=== PATIENT | female | born 1935 | race Caucasian/White ===

== ENCOUNTER 2018-04-14 20:15 | Inpatient (IN) | payer MEDICARE, OTHER ==
[2018-04-14] MEDS ORDERED: BISACODYL 10 MG SUPP PR (22:30)
[2018-04-14] MEDS ORDERED: MAGNESIUM HYDROXIDE 30ML CUP PO (22:30)
[2018-04-14] MEDS ORDERED: ALBUTEROL/IPRATROPIUM (NEB) 3 ML AMP HHN (22:30)
[2018-04-14] MEDS: DOCUSATE SODIUM 100 MG CAP PO (22:43)
[2018-04-14] MEDS: MONTELUKAST 10 MG TAB PO (22:44)
[2018-04-14] MEDS: SENNA TAB PO (22:44)
[2018-04-14] MEDS: QUETIAPINE 25 MG TAB PO (22:44)
[2018-04-14] MEDS: ATORVASTATIN 10 MG TAB PO (22:44)
[2018-04-14] MEDS ORDERED: PENDING SANTYL ORDER FOR WOUND CARE XX (23:00)
[2018-04-14] MEDS ORDERED: POLYETHYLENE GLYCOL 17 GM PACKET PO (23:00)
[2018-04-14] MEDS ORDERED: GLUCOSE GEL 15 GRAM TUBE PO ×2 (23:00)
[2018-04-14] MEDS ORDERED: GLUCOSE GEL 15 GRAM TUBE BUCCAL (23:00)
[2018-04-14] MEDS ORDERED: traMADol 50 MG TAB PO (23:00)
[2018-04-14] MEDS ORDERED: GLUCAGON 1 MG INJ IM (23:00)
[2018-04-14] MEDS ORDERED: DEXTROSE 50% 50 ML SYRINGE IV ×2 (23:00)
[2018-04-14] MEDS: NYSTATIN 30 GM POWDER BTL TOP (23:30)
[2018-04-15] MEDS: ACCUCHECK AT 2AM (Patients on SS coverage) XX (02:00)
[2018-04-15 02:30] LABS: ADD UMIC YES; UR ASCORBIC ACID NEGATIVE (NEGATIVE); UR BILIRUBIN (Dip) NEGATIVE (NEGATIVE); UR BLOOD (Dip) NEGATIVE (NEGATIVE); UR CLARITY CLEAR (CLEAR); UR COLOR YELLOW (YELLOW); UR GLUCOSE (Dip) 1+ mg/dL (NEGATIVE); UR KETONES (Dip) NEGATIVE (NEGATIVE); UR LEUKOCYTE ESTERASE (Dip) TRACE Leu/ul (NEGATIVE); UR NITRITE (Dip) NEGATIVE (NEGATIVE); UR RBC 3 /HPF (0-5); UR SPECIFIC GRAVITY (Dip) 1.012 (1.003-1.030); UR TOTAL PROTEIN (Dip) NEGATIVE (NEGATIVE); UR UROBILINOGEN (Dip) NEGATIVE (NEGATIVE); UR WBC 8 /HPF (0-5)
[2018-04-15] MEDS: PANTOPRAZOLE (EC) 40 MG TAB PO (06:07)
[2018-04-15] MEDS: Insulin NOVOLOG SS MILD Algorithm (SS with meals and bedtime) SC ×4 (07:05→21:00)
[2018-04-15 07:42] LABS: ADD MAN DIFF? NO
[2018-04-15 07:45] LABS: WHITE BLOOD COUNT 6.1 10^3/ul (4.8-10.8)
[2018-04-15 07:45] LABS: BASOPHILS % 0.3 % (0.0-2.0); EOSINOPHILS # 0.2 10^3/ul (0.0-0.5); EOSINOPHILS % 2.8 % (0.0-7.0); HEMATOCRIT 28.6 % (37.0-47.0); HEMOGLOBIN 9.6 g/dl (12.0-16.0); LYMPHOCYTES # 1.6 10^3/ul (0.8-2.9); LYMPHOCYTES % 26.1 % (15.0-51.0); MEAN CORPUSCULAR HEMOGLOBIN 29.8 pg (29.0-33.0); MEAN CORPUSCULAR HGB CONC 33.6 g/dl (32.0-37.0); MEAN CORPUSCULAR VOLUME 88.8 fl (82.0-101.0); MEAN PLATELET VOLUME 9.7 fl (7.4-10.4); MONOCYTE # 0.6 10^3/ul (0.3-0.9); MONOCYTES % 9.4 % (0.0-11.0); NEUTROPHIL # 3.7 10^3/ul (1.6-7.5); NEUTROPHILS % 60.9 % (39.0-77.0); PLATELET COUNT 198 10^3/UL (140-415); RED BLOOD COUNT 3.22 10^6/ul (4.20-5.40); RED CELL DISTRIBUTION WIDTH 13.2 % (11.5-14.5)
[2018-04-15 08:07] LABS: ALANINE AMINOTRANSFERASE 36 IU/L (13-69); ALBUMIN 3.1 g/dl (3.3-4.9); ALBUMIN/GLOBULIN RATIO 1.63; ALKALINE PHOSPHATASE 49 IU/L (42-121); ANION GAP 12 (8-16); ASPARTATE AMINO TRANSFERASE 16 IU/L (15-46); BILIRUBIN,INDIRECT 0.6 mg/dl (0-1.1); BILIRUBIN,TOTAL 0.6 mg/dl (0.2-1.3); BLOOD UREA NITROGEN 17 mg/dl (7-20); CALCIUM 8.7 mg/dl (8.4-10.2); CARBON DIOXIDE 31 mmol/L (21-31); CHLORIDE 94 mmol/L (97-110); CREATININE 0.57 mg/dl (0.44-1.00); GLUCOSE 88 mg/dl (70-220); POTASSIUM 3.8 mmol/L (3.5-5.1); SODIUM 133 mmol/L (135-144)
[2018-04-15] MEDS: ALBUTEROL/IPRATROPIUM (NEB) 3 ML AMP HHN ×4 (09:00→20:20)
[2018-04-15] MEDS: DOCUSATE SODIUM 100 MG CAP PO ×2 (09:49→21:00)
[2018-04-15] MEDS: NYSTATIN 30 GM POWDER BTL TOP ×2 (09:49→22:34)
[2018-04-15] MEDS: CLOPIDOGREL 75 MG TAB PO (09:49)
[2018-04-15] MEDS: predniSONE 5 MG TAB PO (09:50)
[2018-04-15] MEDS: VALSARTAN 160 MG TAB PO (09:50)
[2018-04-15] MEDS: METOPROLOL (XL) 25 MG TAB PO (09:50)
[2018-04-15] MEDS: ISOSORBIDE MONONITRATE(SR)30 MG TAB PO (09:51)
[2018-04-15] MEDS: ATORVASTATIN 10 MG TAB PO (20:18)
[2018-04-15] MEDS: QUETIAPINE 25 MG TAB PO (20:18)
[2018-04-15] MEDS: MONTELUKAST 10 MG TAB PO (20:18)
[2018-04-15] MEDS: SENNA TAB PO (21:00)
[2018-04-16] MEDS: ACCUCHECK AT 2AM (Patients on SS coverage) XX (02:00)
[2018-04-16] MEDS: PANTOPRAZOLE (EC) 40 MG TAB PO (06:12)
[2018-04-16 06:24] LABS: ADD MAN DIFF? NO
[2018-04-16 06:31] LABS: WHITE BLOOD COUNT 6.3 10^3/ul (4.8-10.8)
[2018-04-16 06:31] LABS: BASOPHILS % 0.2 % (0.0-2.0); EOSINOPHILS # 0.2 10^3/ul (0.0-0.5); EOSINOPHILS % 2.7 % (0.0-7.0); HEMATOCRIT 32.9 % (37.0-47.0); HEMOGLOBIN 11.1 g/dl (12.0-16.0); LYMPHOCYTES # 1.3 10^3/ul (0.8-2.9); LYMPHOCYTES % 21.4 % (15.0-51.0); MEAN CORPUSCULAR HEMOGLOBIN 29.8 pg (29.0-33.0); MEAN CORPUSCULAR HGB CONC 33.7 g/dl (32.0-37.0); MEAN CORPUSCULAR VOLUME 88.2 fl (82.0-101.0); MEAN PLATELET VOLUME 9.4 fl (7.4-10.4); MONOCYTE # 0.6 10^3/ul (0.3-0.9); MONOCYTES % 9.4 % (0.0-11.0); NEUTROPHIL # 4.1 10^3/ul (1.6-7.5); NEUTROPHILS % 65.7 % (39.0-77.0); PLATELET COUNT 246 10^3/UL (140-415); RED BLOOD COUNT 3.73 10^6/ul (4.20-5.40)
[2018-04-16 07:05] LABS: ANION GAP 16 (8-16); BLOOD UREA NITROGEN 20 mg/dl (7-20); CALCIUM 8.8 mg/dl (8.4-10.2); CARBON DIOXIDE 29 mmol/L (21-31); CHLORIDE 96 mmol/L (97-110); CREATININE 0.73 mg/dl (0.44-1.00); GLUCOSE 93 mg/dl (70-220); MAGNESIUM 1.7 mg/dl (1.7-2.5); PHOSPHORUS 3.5 mg/dl (2.5-4.9); SODIUM 137 mmol/L (135-144)
[2018-04-16] MEDS: Insulin NOVOLOG SS MILD Algorithm (SS with meals and bedtime) SC ×4 (07:05→21:00)
[2018-04-16] MEDS: ALBUTEROL/IPRATROPIUM (NEB) 3 ML AMP HHN ×4 (07:32→20:55)
[2018-04-16] MEDS: predniSONE 5 MG TAB PO (09:07)
[2018-04-16] MEDS: ISOSORBIDE MONONITRATE(SR)30 MG TAB PO (09:07)
[2018-04-16] MEDS: DOCUSATE SODIUM 100 MG CAP PO ×2 (09:07→21:18)
[2018-04-16] MEDS: VALSARTAN 160 MG TAB PO (09:07)
[2018-04-16] MEDS: CLOPIDOGREL 75 MG TAB PO (09:07)
[2018-04-16] MEDS: NYSTATIN 30 GM POWDER BTL TOP ×2 (09:08→21:00)
[2018-04-16] MEDS: METOPROLOL (XL) 25 MG TAB PO (09:08)
[2018-04-16] MEDS: QUETIAPINE 25 MG TAB PO (21:18)
[2018-04-16] MEDS: ATORVASTATIN 10 MG TAB PO (21:18)
[2018-04-16] MEDS: MONTELUKAST 10 MG TAB PO (21:18)
[2018-04-16] MEDS: SENNA TAB PO (21:18)
[2018-04-17] MEDS: ACCUCHECK AT 2AM (Patients on SS coverage) XX (02:00)
[2018-04-17] MEDS: PANTOPRAZOLE (EC) 40 MG TAB PO (06:08)
[2018-04-17] MEDS: Insulin NOVOLOG SS MILD Algorithm (SS with meals and bedtime) SC ×4 (07:05→21:00)
[2018-04-17] MEDS: ALBUTEROL/IPRATROPIUM (NEB) 3 ML AMP HHN ×4 (08:02→20:12)
[2018-04-17] MEDS: ISOSORBIDE MONONITRATE(SR)30 MG TAB PO (08:46)
[2018-04-17] MEDS: DOCUSATE SODIUM 100 MG CAP PO ×2 (08:46→21:00)
[2018-04-17] MEDS: CLOPIDOGREL 75 MG TAB PO (08:46)
[2018-04-17] MEDS: predniSONE 5 MG TAB PO (08:46)
[2018-04-17] MEDS: VALSARTAN 160 MG TAB PO (08:47)
[2018-04-17] MEDS: METOPROLOL (XL) 25 MG TAB PO (08:47)
[2018-04-17] MEDS: NYSTATIN 30 GM POWDER BTL TOP ×3 (08:48→21:05)
[2018-04-17] MEDS: SENNA TAB PO (21:00)
[2018-04-17] MEDS: QUETIAPINE 25 MG TAB PO (21:04)
[2018-04-17] MEDS: MONTELUKAST 10 MG TAB PO (21:04)
[2018-04-17] MEDS: ATORVASTATIN 10 MG TAB PO (21:04)
[2018-04-18] MEDS: ACETAMINOPHEN 325 MG TAB PO (01:43)
[2018-04-18] MEDS: ACCUCHECK AT 2AM (Patients on SS coverage) XX (02:00)
[2018-04-18] MEDS: PANTOPRAZOLE (EC) 40 MG TAB PO (05:31)
[2018-04-18] MEDS: Insulin NOVOLOG SS MILD Algorithm (SS with meals and bedtime) SC ×4 (07:05→21:15)
[2018-04-18] MEDS: ALBUTEROL/IPRATROPIUM (NEB) 3 ML AMP HHN (08:04)
[2018-04-18] MEDS: NYSTATIN 30 GM POWDER BTL TOP ×2 (09:00→21:26)
[2018-04-18] MEDS: DOCUSATE SODIUM 100 MG CAP PO ×2 (10:16→21:00)
[2018-04-18] MEDS: VALSARTAN 160 MG TAB PO (10:17)
[2018-04-18] MEDS: CLOPIDOGREL 75 MG TAB PO (10:17)
[2018-04-18] MEDS: ISOSORBIDE MONONITRATE(SR)30 MG TAB PO (10:18)
[2018-04-18] MEDS: predniSONE 5 MG TAB PO (10:18)
[2018-04-18] MEDS: HYDROCODONE/APAP (5/325) TAB PO (10:18)
[2018-04-18] MEDS: METOPROLOL (XL) 25 MG TAB PO (10:18)
[2018-04-18] MEDS ORDERED: ALBUTEROL/IPRATROPIUM (NEB) 3 ML AMP HHN (14:00)
[2018-04-18] MEDS: ATORVASTATIN 10 MG TAB PO (20:28)
[2018-04-18] MEDS: MONTELUKAST 10 MG TAB PO (20:28)
[2018-04-18] MEDS: SENNA TAB PO (21:00)
[2018-04-18] MEDS: QUETIAPINE 25 MG TAB PO (21:25)
[2018-04-19] MEDS: ACCUCHECK AT 2AM (Patients on SS coverage) XX (02:16)
[2018-04-19] MEDS: PANTOPRAZOLE (EC) 40 MG TAB PO (05:40)
[2018-04-19] MEDS: Insulin NOVOLOG SS MILD Algorithm (SS with meals and bedtime) SC ×4 (08:44→20:52)
[2018-04-19] MEDS: ISOSORBIDE MONONITRATE(SR)30 MG TAB PO (09:00)
[2018-04-19] MEDS: METOPROLOL (XL) 25 MG TAB PO (09:00)
[2018-04-19] MEDS: NYSTATIN 30 GM POWDER BTL TOP ×2 (09:00→20:54)
[2018-04-19] MEDS: DOCUSATE SODIUM 100 MG CAP PO ×2 (09:46→20:52)
[2018-04-19] MEDS: HYDROCODONE/APAP (5/325) TAB PO (09:46)
[2018-04-19] MEDS: predniSONE 5 MG TAB PO (09:46)
[2018-04-19] MEDS: CLOPIDOGREL 75 MG TAB PO (09:46)
[2018-04-19] MEDS: MONTELUKAST 10 MG TAB PO (20:49)
[2018-04-19] MEDS: VALSARTAN 160 MG TAB PO (20:49)
[2018-04-19] MEDS: ATORVASTATIN 10 MG TAB PO (20:49)
[2018-04-19] MEDS: SENNA TAB PO (20:52)
[2018-04-19] MEDS: QUETIAPINE 25 MG TAB PO (21:53)
[2018-04-20] MEDS: ACCUCHECK AT 2AM (Patients on SS coverage) XX (02:00)
[2018-04-20] MEDS: PANTOPRAZOLE (EC) 40 MG TAB PO (05:24)
[2018-04-20] MEDS: Insulin NOVOLOG SS MILD Algorithm (SS with meals and bedtime) SC ×4 (07:05→20:58)
[2018-04-20] MEDS: CLOPIDOGREL 75 MG TAB PO (08:06)
[2018-04-20] MEDS: VALSARTAN 160 MG TAB PO ×2 (08:06→20:54)
[2018-04-20] MEDS: DOCUSATE SODIUM 100 MG CAP PO ×2 (08:06→20:58)
[2018-04-20] MEDS: ISOSORBIDE MONONITRATE(SR)30 MG TAB PO (08:07)
[2018-04-20] MEDS: METOPROLOL (XL) 25 MG TAB PO (08:07)
[2018-04-20] MEDS: predniSONE 5 MG TAB PO (08:07)
[2018-04-20] MEDS: NYSTATIN 30 GM POWDER BTL TOP ×2 (08:08→20:58)
[2018-04-20] MEDS: MONTELUKAST 10 MG TAB PO (20:53)
[2018-04-20] MEDS: QUETIAPINE 25 MG TAB PO (20:53)
[2018-04-20] MEDS: ATORVASTATIN 10 MG TAB PO (20:54)
[2018-04-20] MEDS: SENNA TAB PO (20:57)
[2018-04-21] MEDS: ACCUCHECK AT 2AM (Patients on SS coverage) XX (02:00)
[2018-04-21] MEDS: PANTOPRAZOLE (EC) 40 MG TAB PO (06:11)
[2018-04-21 06:32] LABS: ADD MAN DIFF? NO
[2018-04-21 06:33] LABS: BASOPHILS % 0.2 % (0.0-2.0); EOSINOPHILS # 0.1 10^3/ul (0.0-0.5); EOSINOPHILS % 2.3 % (0.0-7.0); HEMATOCRIT 35.8 % (37.0-47.0); LYMPHOCYTES # 1.4 10^3/ul (0.8-2.9); LYMPHOCYTES % 26.5 % (15.0-51.0); MEAN CORPUSCULAR HEMOGLOBIN 29.6 pg (29.0-33.0); MEAN CORPUSCULAR HGB CONC 33.5 g/dl (32.0-37.0); MEAN CORPUSCULAR VOLUME 88.2 fl (82.0-101.0); MEAN PLATELET VOLUME 9.3 fl (7.4-10.4); MONOCYTE # 0.7 10^3/ul (0.3-0.9); MONOCYTES % 13.7 % (0.0-11.0); NEUTROPHIL # 2.9 10^3/ul (1.6-7.5); NEUTROPHILS % 56.3 % (39.0-77.0); PLATELET COUNT 365 10^3/UL (140-415); RED BLOOD COUNT 4.06 10^6/ul (4.20-5.40)
[2018-04-21 06:33] LABS: WHITE BLOOD COUNT 5.2 10^3/ul (4.8-10.8)
[2018-04-21 06:57] LABS: ANION GAP 12 (8-16); BLOOD UREA NITROGEN 15 mg/dl (7-20); CALCIUM 9.3 mg/dl (8.4-10.2); CARBON DIOXIDE 30 mmol/L (21-31); CHLORIDE 99 mmol/L (97-110); GLUCOSE 94 mg/dl (70-220); MAGNESIUM 1.7 mg/dl (1.7-2.5); PHOSPHORUS 3.4 mg/dl (2.5-4.9); POTASSIUM 3.6 mmol/L (3.5-5.1); SODIUM 137 mmol/L (135-144)
[2018-04-21] MEDS: Insulin NOVOLOG SS MILD Algorithm (SS with meals and bedtime) SC ×4 (07:05→20:41)
[2018-04-21 07:08] LABS: HEMOGLOBIN A1C 6.3 % (0-5.9)
[2018-04-21] MEDS: DOCUSATE SODIUM 100 MG CAP PO ×2 (08:48→20:36)
[2018-04-21] MEDS: VALSARTAN 160 MG TAB PO ×2 (08:48→20:35)
[2018-04-21] MEDS: CLOPIDOGREL 75 MG TAB PO (08:48)
[2018-04-21] MEDS: predniSONE 5 MG TAB PO (08:49)
[2018-04-21] MEDS: METOPROLOL (XL) 25 MG TAB PO (08:49)
[2018-04-21] MEDS: ISOSORBIDE MONONITRATE(SR)30 MG TAB PO (08:49)
[2018-04-21] MEDS: NYSTATIN 30 GM POWDER BTL TOP ×2 (08:50→20:42)
[2018-04-21] MEDS: ATORVASTATIN 10 MG TAB PO (20:34)
[2018-04-21] MEDS: MONTELUKAST 10 MG TAB PO (20:35)
[2018-04-21] MEDS: SENNA TAB PO (20:36)
[2018-04-21] MEDS: QUETIAPINE 25 MG TAB PO (20:36)
[2018-04-22] MEDS: ACCUCHECK AT 2AM (Patients on SS coverage) XX (02:00)
[2018-04-22] MEDS: PANTOPRAZOLE (EC) 40 MG TAB PO (06:25)
[2018-04-22] MEDS: Insulin NOVOLOG SS MILD Algorithm (SS with meals and bedtime) SC ×4 (07:05→20:49)
[2018-04-22] MEDS: NYSTATIN 30 GM POWDER BTL TOP ×2 (09:18→20:50)
[2018-04-22] MEDS: VALSARTAN 160 MG TAB PO ×2 (09:18→20:48)
[2018-04-22] MEDS: ISOSORBIDE MONONITRATE(SR)30 MG TAB PO (09:19)
[2018-04-22] MEDS: AMLODIPINE 5 MG TAB PO ×2 (09:19→20:49)
[2018-04-22] MEDS: DOCUSATE SODIUM 100 MG CAP PO ×2 (09:19→20:49)
[2018-04-22] MEDS: CLOPIDOGREL 75 MG TAB PO (09:19)
[2018-04-22] MEDS: METOPROLOL (XL) 50 MG TAB PO (09:19)
[2018-04-22] MEDS: predniSONE 5 MG TAB PO (09:19)
[2018-04-22] MEDS: MONTELUKAST 10 MG TAB PO (20:48)
[2018-04-22] MEDS: ATORVASTATIN 10 MG TAB PO (20:48)
[2018-04-22] MEDS: SENNA TAB PO (20:49)
[2018-04-22] MEDS: QUETIAPINE 25 MG TAB PO (20:49)
[2018-04-23] MEDS: ACCUCHECK AT 2AM (Patients on SS coverage) XX (02:00)
[2018-04-23] MEDS: PANTOPRAZOLE (EC) 40 MG TAB PO (06:25)
[2018-04-23] MEDS: Insulin NOVOLOG SS MILD Algorithm (SS with meals and bedtime) SC ×4 (07:05→21:00)
[2018-04-23] MEDS: AMLODIPINE 5 MG TAB PO ×2 (08:31→21:18)
[2018-04-23] MEDS: DOCUSATE SODIUM 100 MG CAP PO ×2 (08:32→21:18)
[2018-04-23] MEDS: predniSONE 5 MG TAB PO (08:32)
[2018-04-23] MEDS: CLOPIDOGREL 75 MG TAB PO (08:32)
[2018-04-23] MEDS: VALSARTAN 160 MG TAB PO ×2 (08:32→21:19)
[2018-04-23] MEDS: METOPROLOL (XL) 50 MG TAB PO (08:32)
[2018-04-23] MEDS: NYSTATIN 30 GM POWDER BTL TOP ×2 (08:33→21:20)
[2018-04-23] MEDS: ISOSORBIDE MONONITRATE(SR)30 MG TAB PO (08:33)
[2018-04-23] MEDS: ATORVASTATIN 10 MG TAB PO (21:17)
[2018-04-23] MEDS: MONTELUKAST 10 MG TAB PO (21:19)
[2018-04-23] MEDS: SENNA TAB PO (21:19)
[2018-04-23] MEDS: QUETIAPINE 25 MG TAB PO (21:19)
[2018-04-24] MEDS: ACCUCHECK AT 2AM (Patients on SS coverage) XX (02:00)
[2018-04-24] MEDS: PANTOPRAZOLE (EC) 40 MG TAB PO (05:58)
[2018-04-24] MEDS: Insulin NOVOLOG SS MILD Algorithm (SS with meals and bedtime) SC ×4 (07:05→21:00)
[2018-04-24] MEDS: DOCUSATE SODIUM 100 MG CAP PO ×2 (09:00→21:00)
[2018-04-24] MEDS: predniSONE 5 MG TAB PO (09:45)
[2018-04-24] MEDS: AMLODIPINE 5 MG TAB PO ×2 (09:46→21:14)
[2018-04-24] MEDS: ISOSORBIDE MONONITRATE(SR)30 MG TAB PO (09:46)
[2018-04-24] MEDS: VALSARTAN 160 MG TAB PO ×2 (09:46→21:13)
[2018-04-24] MEDS: CLOPIDOGREL 75 MG TAB PO (09:46)
[2018-04-24] MEDS: METOPROLOL (XL) 50 MG TAB PO (09:46)
[2018-04-24] MEDS: NYSTATIN 30 GM POWDER BTL TOP ×2 (09:47→21:00)
[2018-04-24] MEDS: SENNA TAB PO (21:00)
[2018-04-24] MEDS: ATORVASTATIN 10 MG TAB PO (21:13)
[2018-04-24] MEDS: MONTELUKAST 10 MG TAB PO (21:14)
[2018-04-24] MEDS: QUETIAPINE 25 MG TAB PO (21:14)
[2018-04-25] MEDS: ACCUCHECK AT 2AM (Patients on SS coverage) XX (02:00)
[2018-04-25] MEDS: PANTOPRAZOLE (EC) 40 MG TAB PO (06:09)
[2018-04-25] MEDS: Insulin NOVOLOG SS MILD Algorithm (SS with meals and bedtime) SC ×4 (08:45→21:00)
[2018-04-25] MEDS: HYDROCODONE/APAP (5/325) TAB PO ×2 (08:58→13:00)
[2018-04-25] MEDS: DOCUSATE SODIUM 100 MG CAP PO ×2 (08:58→21:00)
[2018-04-25] MEDS: AMLODIPINE 5 MG TAB PO ×2 (08:58→21:21)
[2018-04-25] MEDS: METOPROLOL (XL) 50 MG TAB PO (08:58)
[2018-04-25] MEDS: predniSONE 5 MG TAB PO (08:59)
[2018-04-25] MEDS: CLOPIDOGREL 75 MG TAB PO (08:59)
[2018-04-25] MEDS: ISOSORBIDE MONONITRATE(SR)30 MG TAB PO (08:59)
[2018-04-25] MEDS: VALSARTAN 160 MG TAB PO ×2 (08:59→21:21)
[2018-04-25] MEDS: NYSTATIN 30 GM POWDER BTL TOP ×2 (09:00→21:00)
[2018-04-25] MEDS: SENNA TAB PO (21:00)
[2018-04-25] MEDS: ATORVASTATIN 10 MG TAB PO (21:20)
[2018-04-25] MEDS: MONTELUKAST 10 MG TAB PO (21:20)
[2018-04-25] MEDS: QUETIAPINE 25 MG TAB PO (21:22)
[2018-04-26] MEDS: ACCUCHECK AT 2AM (Patients on SS coverage) XX (02:00)
[2018-04-26] MEDS: PANTOPRAZOLE (EC) 40 MG TAB PO (05:45)
[2018-04-26] MEDS: Insulin NOVOLOG SS MILD Algorithm (SS with meals and bedtime) SC ×2 (07:05→12:53)
[2018-04-26] MEDS: DOCUSATE SODIUM 100 MG CAP PO (09:33)
[2018-04-26] MEDS: VALSARTAN 160 MG TAB PO (09:34)
[2018-04-26] MEDS: CLOPIDOGREL 75 MG TAB PO (09:34)
[2018-04-26] MEDS: AMLODIPINE 5 MG TAB PO (09:34)
[2018-04-26] MEDS: ISOSORBIDE MONONITRATE(SR)30 MG TAB PO (09:34)
[2018-04-26] MEDS: predniSONE 5 MG TAB PO (09:35)
[2018-04-26] MEDS: METOPROLOL (XL) 50 MG TAB PO (09:35)
[2018-04-26] MEDS: NYSTATIN 30 GM POWDER BTL TOP (09:36)
== END 2018-04-26 14:00 | disposition home health service (06) | DRG 92 ==
LOC: VRC 20:15
PROVIDERS: Physical Medicine & Rehabilitation
PROC: F07Z5FZ Bed Mobility Treatment using Assistive, Adaptive, Supportive or Protective Equipment (ICD-10-PCS; principal; 2018-04-15)
PROC: F07Z9FZ Gait Training/Functional Ambulation Treatment using Assistive, Adaptive, Supportive or Protective Equipment (ICD-10-PCS; 2018-04-15)
PROC: F07Z8FZ Transfer Training Treatment using Assistive, Adaptive, Supportive or Protective Equipment (ICD-10-PCS; 2018-04-15)
PROC: F08Z0FZ Bathing/Showering Techniques Treatment using Assistive, Adaptive, Supportive or Protective Equipment (ICD-10-PCS; 2018-04-15)
PROC: F08Z1FZ Dressing Techniques Treatment using Assistive, Adaptive, Supportive or Protective Equipment (ICD-10-PCS; 2018-04-15)
PROC: F08Z2FZ Grooming/Personal Hygiene Treatment using Assistive, Adaptive, Supportive or Protective Equipment (ICD-10-PCS; 2018-04-15)
DX: G72.81 Critical illness myopathy (principal); J45.901 Unspecified asthma with (acute) exacerbation; E22.2 Syndrome of inappropriate secretion of antidiuretic hormone; K21.9 Gastro-esophageal reflux disease without esophagitis; E78.5 Hyperlipidemia, unspecified; M1A.9XX0 Chronic gout, unspecified, without tophus (tophi); I10 Essential (primary) hypertension; D64.9 Anemia, unspecified; I73.9 Peripheral vascular disease, unspecified; Z79.02 Long term (current) use of antithrombotics/antiplatelets
CPT/HCPCS: 80048; 80053; 81001; 82962; 83036; 83735; 84100; 85025; 87081; 87086; 94640; 94664; 97110; 97112; 97116; 97150; 97162; 97530; 97535